=== PATIENT | female | born 1975 | race African-American/Black ===

== ENCOUNTER 2017-11-18 09:42 | Emergency (ER) | payer MEDICAID ==
[~2017-11-18] VITALS: Ht 167.6 cm; Wt 127.0 kg
[2017-11-18] MEDS ORDERED: ACETAMINOPHEN 325MG TABLET PO ONE (13:30)
[2017-11-18 14:01] LABS: BASOPHILS % 0.2 % (0.0-2.0); EOSINOPHILS % 0.3 % (0.0-5.0); HEMATOCRIT. 32.3 % (36.0-48.0); HEMOGLOBIN. 11.2 g/dL (12.0-16.0); LYMPHOCYTES % 12.3 % (20.0-50.0); MEAN CORPUSCULAR HEMOGLOBIN 29.4 pg (28.0-32.0); MEAN CORPUSCULAR VOLUME 84.6 fL (81.0-99.0); MEAN PLATELET VOLUME 8.6 fl (7.4-10.4); MONOCYTES % 5.3 % (2.0-8.0); NEUTROPHILS % 81.9 % (40.0-76.0); PLATELET 197 x1000/uL (130-400); RED BLOOD CELL COUNT 3.82 mill/uL (4.2-5.4); RED CELL DISTRIBUTION WIDTH 14.2 % (11.6-14.6)
[2017-11-18 14:07] LABS: PROTHROMBIN TIME 10.5 sec (9.4-11.6)
[2017-11-18 14:10] LABS: CHLORIDE 111 mEq/L (98-107)
[2017-11-18 18:20] VITALS: BP 113/76
[2017-11-18 18:21] LABS: CLARITY URINE CLOUDY (CLEAR); COLOR URINE YELLOW (YELLOW); KETONES URINE NEGATIVE (NEGATIVE); LEUKOCYTE ESTERASE URINE 2+ (NEGATIVE); NITRITE URINE POSITIVE (NEGATIVE); OCCULT BLOOD URINE TRACE (NEGATIVE); PH URINE 5.5 (4.5-8.0); PROTEIN URINE NEGATIVE (NEGATIVE); SPECIFIC GRAVITY URINE 1.017 (1.005-1.030); UROBILINOGEN URINE 0.2 E.U./dL (0.2-1.0)
[2017-11-18 18:39] LABS: *AMPHETAMINES SCREEN URINE NEGATIVE (NEGATIVE); *BARBITURATES SCREEN URINE NEGATIVE (NEGATIVE); *BENZODIAZEPINES SCREEN URINE NEGATIVE (NEGATIVE); *COCAINE SCREEN URINE NEGATIVE (NEGATIVE); CANNABINOID URINE SCREEN NEGATIVE (NEGATIVE); METHADONE URINE SCREEN NEGATIVE (NEGATIVE); PHENCYCLIDINE URINE SCREEN NEGATIVE (NEGATIVE)
[2017-11-18 18:41] LABS: OPIATES URINE SCREEN PRESUMTIVE POSITIVE (NEGATIVE)
== END 2017-11-18 18:30 | disposition home or self-care (01) ==
LOC: ER 12:06
DX: M94.0 Chondrocostal junction syndrome [Tietze] (principal); E86.0 Dehydration; D64.9 Anemia, unspecified; F11.10 Opioid abuse, uncomplicated; M25.512 Pain in left shoulder; D72.818 Other decreased white blood cell count; D71 Functional disorders of polymorphonuclear neutrophils; Z85.71 Personal history of Hodgkin lymphoma; Z87.440 Personal history of urinary (tract) infections; Z98.890 Other specified postprocedural states
CPT/HCPCS: 36415; 70450; 71045; 80053; 80305; 81003; 83036; 83880; 84484; 85025; 85610; 87077; 87086; 87186; 93005; 99285